=== PATIENT | male | born 1960 | race Caucasian/White ===

== ENCOUNTER → 2020-01-19 | Outpatient (CLI) | payer OTHER ==
[~2020-01-19] MED LIST: REGADENOSON 0.4 MG/5 ML DISP.SYRIN. IV ONE
--- NOTE | 2020-01-19 17:18 | CARD ---
MR#: [id number] Date of Study: 01/19/2020 Ordering Physician: LEXX FRANZ, Referring Physician: LEXX FRANZ, Tech: Vania Ramos APPROVED REPORT EXAM: Two-dimensional and M-mode echocardiogram with Doppler and color Doppler. Other Information Quality : Fair INDICATION Cardiomyopathy 2D DIMENSIONS Left Atrium(2D)3.8 (1.6-4.0cm)IVSd0.9 (0.7-1.1cm) Aortic Root(2D)2.9 (2.0-3.7cm)LVDd5.6 (3.9-5.9cm) LVOT Diameter2.0 (1.8-2.4cm)PWd1.0 (0.7-1.1cm) LVDs4.1 (2.5-4.0cm)FS (%) 26.0 % SV76.6 ml Aortic Valve AoV Peak Charles.139.3cm/sAoV VTI23.8cm AO Peak GR.7.8mmHgLVOT Peak Charles.106.6cm/s LVOT VTI 20.00cmAO Mean GR.5mmHg ALEX (VMAX)1.32hq5KZR (VTI)2.58cm2 Pulmonary Valve PV Peak Wauksmhq87.8cm/sPV Peak Grad.4mmHg Tricuspid Valve TR P. Pcmjbgge181el/sRAP REXMZXVS4xyYz TR Peak Gr.05ygFpAPFW95rxBw LEFT VENTRICLE The left ventricle is normal size. There is normal left ventricular wall thickness. The left ventricu lar systolic function is normal and the ejection fraction is within normal range. The Ejection Fracti on is 50-55%. Wall motion consistent with conduction abnormality. RIGHT VENTRICLE The right ventricle is normal size. There is normal right ventricular wall thickness. The right ventr icular systolic function is normal. ATRIA The left atrium is borderline dilated. The right atrium is borderline dilated. The interatrial septum is intact with no evidence for an atrial septal defect or patent foramen ovale as noted on 2-D or Do ppler imaging. AORTIC VALVE The aortic valve is calcified but opens well. Doppler and Color Flow revealed no significant aortic r egurgitation. There is no significant aortic valvular stenosis. Calculated aortic valve area is 2.52 cm2 with maximum pressure gradient of 8 mmHg and mean pressure gradient of 5 mmHg. MITRAL VALVE The mitral valve is normal in structure and function. There is no evidence of mitral valve prolapse. There is no mitral valve stenosis. Doppler and Color Flow revealed no mitral valve regurgitation note d. TRICUSPID VALVE The tricuspid valve is not well visualized. Doppler and Color Flow revealed trace tricuspid regurgita tion with an estimated PAP of 27 mmHg. There is no tricuspid valve stenosis. PULMONIC VALVE The pulmonic valve is not well visualized. Doppler and Color Flow revealed no pulmonic valvular regur gitation. GREAT VESSELS The aortic root is normal in size. The ascending aorta is normal in size. The IVC is normal in size a nd collapses >50% with inspiration. PERICARDIAL EFFUSION There is a trace pericardial effusion. Critical Notification Critical Value: No <Conclusion> The left ventricle is normal size. The left ventricular systolic function is normal and the ejection fraction is within normal range. The Ejection Fraction is 50-55%. Doppler and Color Flow revealed no significant aortic regurgitation. There is no significant aortic valvular stenosis. Doppler and Color Flow revealed no mitral valve regurgitation noted. Doppler and Color Flow revealed trace tricuspid regurgitation with an estimated PAP of 27 mmHg. Signed by : Turner Burroughs MD Electronically Approved : 01/19/2020 17:17:54
--- NOTE | 2020-01-19 17:31 | RAD ---
MR#: [id number] Date of Study: 01/19/2020 Ordering Physician: LEXX FRANZ, Referring Physician: RIC HUSTON Tech: ROB Suárez, ARRT (R) (N) APPROVED REPORT Test Type: Pharmacological Stress Nurse/Tech: Destiny Waters R.N. Test Indications: cardiomyapathy, afib Cardiac History: afib,obese,htn, See Electronic Medical Record Medications: See Electronic Medical Record Medical History: See Electronic Medical Record Resting ECG: Afib Resting Heart Rate: 72 bpm Resting Blood Pressure: 127/91mmHg Pretest Chest Pain: No chest pain Nurse/Tech Notes irregular rhythm, lungs CTA Consent: The procedure was explained to the patient in lay terms. Informed consent was witnessed. Aaron eout was entered into IForem. History and Stress Test performed by RT Christiano Jackson) (N) Pharm. Details Pharmacologic stress testing was performed using 0.4mg per 5ml of regadenoson given intravenously ove r 7-10 seconds. Stress Symptoms SOA POST EXERCISE Reason for Termination: Infusion complete Max HR: 111 bpm Max Blood Pressure: 129/85mmHg Blood Pressure response to exercise: Normal blood pressure response during stress. Heart Rate response to exercise: wnl Chest Pain: No. Arrhythmia: No. no change from baseline Afib ST Change: No. INTERPRETATION Stress EKG Conclusion: The resting EKG showed atrial fibrillation and nonspecific ST-T wave changes. The stress EKG showed no significant changes from baseline. No EKG evidence of stress-induced ischemia. Imaging Protocol IMAGE PROTOCOL: Rest Tc-99m/stress Tc-99m 1 day Rest: Stress: Viability: Radiopharm.Tc99m ZbmxwyyedQk34z Sestamibi Wcmj71sRd 32mCi Inj-Img Rhsd76lfn. 75min. Rest Admin Site:IV - Right HandAdministrator:RT Christiano Jackson)(N) Stress Admin Site: IV - Right HandAdministrator: RT Christiano Jackson)(N) STRESS DATA End Diast. Vol.87.0mlAv. Heart Rate74.0bpm End Syst. Vol.31.0mlCO Index BSA0.0L/min Myocardial Vahe308.0gEject. Staieuzu05.0% Stress Rates Pk. Fill Rate3.07EDV/secLVtime Pk. Fill 118.61msec Pk. Empty Rate3.26ESV/secLVtime Pk. Bxwrh327.39msec 1/3 Pk. Fill1.93EDV/sec Stress Scores Regional WT0.00Summed WT4.00 Regional WM0.00Summed WM3.00 LV Perfusion The stress scans showed no significant defects. The rest scans showed no significant defects. Nuclear imaging shows no reversible ischemia or infarct. Wall Motion Left ventricular systolic function is normal with no regional wall motion abnormalities and an ejecti on fraction of 64%. LV Perf. Quant 17 Seg. SSS0.00 17 Seg. SRS0.00 17 Seg. SDS0.00 Stress Defect Extent (% LAD)0.00Rest Defect Extent (% LAD)0.00Rev. Defect Extent (% LAD)0.00 Stress Defect Extent (% LCX) 0.00Rest Defect Extent (% LCX)0.00Rev. Defect Extent (% LCX)0.00 Stress Defect Extent (% RCA)0.00Rest Defect Extent (% RCA)0.00Rev. Defect Extent (% RCA)0.00 Stress Defect Extent (% LELO)0.00Rest Defect Extent (% LELO)0.00Rev. Defect Extent (% LELO)0.00 Conclusion 1. No EKG evidence of stress-induced ischemia. 2. Nuclear imaging shows no reversible ischemia or infarct. 3. Normal LV systolic function with an ejection fraction of 64%. 4. Low risk Lexiscan nuclear stress test. Signed by : Turner Burroughs MD Electronically Approved : 01/19/2020 17:30:51
== END | disposition home or self-care (01) ==
LOC: NM 09:49
PROVIDERS: ATTEND Internal Medicine Cardiovascular Disease
DX: I35.1 Nonrheumatic aortic (valve) insufficiency (principal); I42.9 Cardiomyopathy, unspecified; I48.91 Unspecified atrial fibrillation; I10 Essential (primary) hypertension
CPT/HCPCS: 78452; 93017; 93306; A9500; J2785

== ENCOUNTER → 2020-02-18 | Outpatient (CLI) | payer OTHER ==
[~2020-02-18] MED LIST changes: +APIX5TAB PO; +ATOR20TA58 PO; +FLEC50TA PO; +FURO20TA3 PO; +LISI10TA2 PO; +METO-239 PO; -REGADENOSON 0.4 MG/5 ML DISP.SYRIN. IV ONE
== END | disposition home or self-care (01) ==
LOC: LAB 13:09
PROVIDERS: ATTEND Internal Medicine Cardiovascular Disease
DX: Z01.812 Encounter for preprocedural laboratory examination (principal); I48.91 Unspecified atrial fibrillation; Z20.828 Contact with and (suspected) exposure to other viral communicable diseases
CPT/HCPCS: U0003-CS

== ENCOUNTER 2020-02-22 12:27 | Day surgery (SDC) | payer OTHER ==
[~2020-02-22 12:27] MED LIST changes: +HYDROmorphone 2 MG/ML VIAL IV PRN; +IV RINGERS,LACTATED 1000ML 1,000 ML IV SCH; +LIDOCAINE 1% PF 2 ML VIAL. ID PRN; +MORPHINE SULFATE 2 MG/ML VIAL. IV PRN; +ONDANSETRON PF 4 MG/2 ML VIAL. IV PRN; +PROCHLORPERAZINE 10 MG/2 ML VIAL. IV PRN; +fentaNYL PF VIAL 100 MCG/2 ML VIAL IV PRN
--- NOTE | 2020-02-22 13:10 | EKG ---
[facility] [address] [place] [address] Test Date: 2020-02-22 Test Time: 12:41:20 Pat Name: ALEX PRICE Department: Room: Gender: M Account Review Specialist: SHAKEEL Odom : 1960 Requested By: LEXX FRANZ Order Number: [id number] Reading MD: Measurements Intervals [place] Rate: 85 P: [place]: QRS: 7 QRSD: 98 T: 26 QT: 366 QTc: 436 Interpretive Statements IRREGULAR RHYTHM, NO P-WAVE FOUND OTHERWISE NORMAL ECG RI6.02 No previous ECG available for comparison
[2020-02-22] MEDS ORDERED: PROPOFOL 50 ML IV ONE (13:24)
[2020-02-22 13:32] LABS: BASO % 1 % (0-3); EOS # 0.1 x10^3/uL (0.0-0.7); EOS % 1 % (0-3); HEMATOCRIT 48.6 % (39.0-53.0); HEMOGLOBIN 16.4 g/dL (13.0-17.5); LYMPH # 1.3 x10^3/uL (1.0-4.8); LYMPH % 19 % (24-48); MEAN CORPUSCULAR HEMOGLOBIN 30 pg (25-35); MEAN CORPUSCULAR HGB CONC 34 g/dL (31-37); MEAN CORPUSCULAR VOLUME 88 fL (79-100); MONO # 0.5 x10^3/uL (0.0-1.1); MONO % 8 % (0-9); NEUT % 71 % (31-73); PLATELET COUNT 278 x10^3/uL (140-400); RED BLOOD COUNT 5.51 x10^6/uL (4.30-5.70); RED CELL DISTRIBUTION WIDTH 13.3 % (11.5-14.5)
[2020-02-22 13:41] LABS: CALCIUM 8.9 mg/dL (8.5-10.1)
[2020-02-22 13:46] LABS: ALBUMIN 3.7 g/dL (3.4-5.0); ALBUMIN/GLOBULIN RATIO 0.9 (1.0-1.7); TOTAL BILIRUBIN 0.7 mg/dL (0.2-1.0); TOTAL PROTEIN 7.6 g/dL (6.4-8.2)
[2020-02-22] MEDS ORDERED: LIDOCAINE 2% TOPICAL JELLY 5GM TUBE. TP ONE (14:20)
[2020-02-22] MEDS ORDERED: LIDOCAINE 2% VISCOUS 15 ML SOLUTION. ONE (14:20)
[2020-02-22] MEDS ORDERED: BENZOCAINE ONE 20% MUCOSAL SPRAY. (14:20)
--- NOTE | 2020-02-22 14:50 | EKG ---
[facility] [address] [place] [address] Test Date: 2020-02-22 Test Time: 14:48:40 Pat Name: ALEX PRICE Department: Room: Gender: M Senior Gis Analyst: CLAUDETTE : 1960 Requested By: MERCED ALVARADO Order Number: [id number] Reading MD: Measurements Intervals [place] Rate: 71 P: 43 CO: 190 QRS: 30 QRSD: 88 T: 30 QT: 380 QTc: 413 Interpretive Statements SINUS RHYTHM NORMAL ECG RI6.02 Compared to ECG 02/22/2020 12:41:20 No significant changes
[2020-02-22 15:15] VITALS: BP 98/63
--- NOTE | 2020-02-22 17:23 | CARD ---
MR#: [id number] Date of Study: 02/22/2020 Ordering Physician: LEXX FRANZ, Referring Physician: LEXX FRANZ, Tech: Thao Paredes RDCS APPROVED REPORT EXAM: Transesophageal echocardiogram with color flow Doppler. INDICATION Atrial Fibrillation PROCEDURE After obtaining informed consent, patient underwent transesophageal echo in the PACU. Type of Sedation : General Anesthesia Sedation was administered by Truong Rousseau CRNA. Sedation was achieved with Propofol 150 mg intravenously. Transesophageal probe was inserted and advanced into esophagus by Otis Tom MD. The LUCINA was performed without complications. Synchronized Cardioversion attempted: Successful Throughout the procedure, the blood pressure, pulse oximetry, cardiac rhythm, and rate were monitored . The patient tolerated the procedure without adverse effects. Recovery from general anesthesia was une ventful and vital signs were stable. LEFT VENTRICLE The left ventricular systolic function is normal. The Ejection Fraction is 55-60%. There is normal LV segmental wall motion. RIGHT VENTRICLE The right ventricle is normal size. The right ventricular systolic function is normal. ATRIA The left atrium size is normal. The right atrium size is normal. The interatrial septum is intact wit h no evidence for an atrial septal defect or patent foramen ovale as noted on 2-D or Doppler imaging. There is no thrombus noted in the left atrial appendage. AORTIC VALVE The aortic valve is normal in structure and function. Doppler and Color Flow revealed no significant aortic regurgitation. There is no significant aortic valvular stenosis. MITRAL VALVE The mitral valve is normal in structure and function. There is no evidence of mitral valve prolapse. There is no mitral valve stenosis. Doppler and Color-flow revealed trace to mild mitral regurgitation . TRICUSPID VALVE The tricuspid valve is normal in structure and function. Doppler and Color Flow revealed trace tricus pid regurgitation. There is no tricuspid valve stenosis. PULMONIC VALVE The pulmonary valve is normal in structure and function. Doppler and Color Flow revealed no pulmonic valvular regurgitation. PERICARDIAL EFFUSION There is no evidence of significant pericardial effusion. Critical Notification Critical Value: No <Conclusion> The left ventricular systolic function is normal. The Ejection Fraction is 55-60%. There is normal LV segmental wall motion. Trace to mild mitral regurgitation. Trace tricuspid regurgitation. There is no evidence of significant pericardial effusion. No intracardiac vegetations or thrombi. Patient underwent successful external cardioversion, reported separately. Signed by : Otis Tom, Electronically Approved : 02/22/2020 17:23:14
--- NOTE | 2020-02-22 17:25 | PDOC4 ---
Procedure Note Procedure: LUCINA guided external cardioversion Indications: Atrial fibrillation Complications: None Procedural Details: An informed consent was obtained from patient. Anesthesiology team administered intravenous propofol for deep sedation. Transesophageal echocardiogram probe was inserted and standard tomographic images were obtained to rule out intracardiac thrombus. Patient was then given 200 J followed by 300 J synchronized biphasic DC current with final conversion of patient rhythm from atrial fibrillation to sinus rhythm. He was hemodynamically stable without any neurological deficits at the end of procedure. He tolerated the procedure well. There were no immediate complications. Conclusions: Successful LUCINA guided external cardioversion of atrial fibrillation to sinus rhythm. MERCED ALVARADO MD Feb 22, 2020 17:25
== END 2020-02-22 15:41 | disposition home or self-care (01) ==
LOC: SURG 12:27
PROVIDERS: ATTEND Internal Medicine Cardiovascular Disease
DX: I48.91 Unspecified atrial fibrillation (principal); I10 Essential (primary) hypertension; I34.0 Nonrheumatic mitral (valve) insufficiency; Z79.899 Other long term (current) drug therapy; Z72.89 Other problems related to lifestyle
CPT/HCPCS: 36415; 80053; 85025; 85610; 85730; 92960; 93005; 93312; 93325; J2704

== ENCOUNTER → 2020-06-30 | Outpatient (CLI) | payer OTHER ==
[~2020-06-30] MED LIST changes: -HYDROmorphone 2 MG/ML VIAL IV PRN; -IV RINGERS,LACTATED 1000ML 1,000 ML IV SCH; -LIDOCAINE 1% PF 2 ML VIAL. ID PRN; -MORPHINE SULFATE 2 MG/ML VIAL. IV PRN; -ONDANSETRON PF 4 MG/2 ML VIAL. IV PRN; -PROCHLORPERAZINE 10 MG/2 ML VIAL. IV PRN; -fentaNYL PF VIAL 100 MCG/2 ML VIAL IV PRN
--- NOTE | 2020-06-30 16:28 | KCIC ---
Examination: MRI right shoulder without contrast HISTORY: History of right shoulder pain COMPARISON: None available Technique: Multiplanar, multisequence MR imaging of the right shoulder performed without contrast FINDINGS: The long head of the biceps tendon within the bicipital groove. The attachment of the long head the b iceps tendon to the superior labral anchor grossly appears intact. The attachment of the subscapularis tendon, supraspinatus ligament grossly appears intact. There is m oderate increased T2 signal identified in the supraspinatus, infraspinatus tendon likely tendinosis. There is increased signal identified in the superior labrum likely degenerative tear. Moderate joint space loss identified in the glenohumeral joint, acromioclavicular joint likely degenerative changes. The acromion is type II. The muscle bulk grossly appears unremarkable. There is obscuration of fat in the rotator interval. IMPRESSION: 1. Increased T2 signal identified in the superior labrum likely a SLAP tear. 2. Moderate tendinosis rotator cuff. Moderate degenerative changes glenohumeral joint, acromioclavic ular joint. 3. Obscuration of fat in the rotator interval. Correlate for adhesive capsulitis. Electronically signed by: Presley Amaya MD (06/30/2020 4:26 PM) [id number]
== END ==
LOC: KCIC MRI 14:27
PROVIDERS: ATTEND Family Medicine
DX: S49.91XD Unspecified injury of right shoulder and upper arm, subsequent encounter (principal); M19.011 Primary osteoarthritis, right shoulder; M75.101 Unspecified rotator cuff tear or rupture of right shoulder, not specified as traumatic; X58.XXXD Exposure to other specified factors, subsequent encounter
CPT/HCPCS: 73221

== ENCOUNTER → 2020-09-13 | Outpatient (CLI) | payer OTHER ==
[~2020-09-13] MED LIST changes: +LISI10TA16 PO; -LISI10TA2 PO
== END ==
LOC: SURGPAT 08:38
PROVIDERS: ATTEND Orthopaedic Surgery
DX: Z01.812 Encounter for preprocedural laboratory examination (principal); Z20.822 Contact with and (suspected) exposure to COVID-19; S43.431D Superior glenoid labrum lesion of right shoulder, subsequent encounter; M75.01 Adhesive capsulitis of right shoulder; M19.011 Primary osteoarthritis, right shoulder; X58.XXXD Exposure to other specified factors, subsequent encounter
CPT/HCPCS: U0003; U0005

== ENCOUNTER 2020-09-23 07:41 | Day surgery (SDC) | payer OTHER ==
[~2020-09-23] VITALS: Ht 182.9 cm; Wt 116.1 kg
[~2020-09-23 07:41] MED LIST changes: +HYDROmorphone 2 MG/ML VIAL IVP PRN; +IV RINGERS,LACTATED 1000ML 1,000 ML IV SCH; +MORPHINE SULFATE 2 MG/ML VIAL. IVP PRN; +PROCHLORPERAZINE 10 MG/2 ML VIAL. IVP PRN; +fentaNYL PF VIAL 100 MCG/2 ML VIAL IVP PRN
[2020-09-23] MEDS ORDERED: fentaNYL PF VIAL 100 MCG/2 ML VIAL ONE (09:18)
[2020-09-23] MEDS ORDERED: PROPOFOL 10 MG/ML (20ML) VIAL. IV ONE (09:18)
[2020-09-23] MEDS ORDERED: LIDOCAINE 2% PF 5 ML VIAL. ONE (09:18)
[2020-09-23] MEDS ORDERED: SUCCINYLCHOLINE 200 MG/10 ML VIAL. ONE (09:18)
[2020-09-23] MEDS ORDERED: ROCURONIUM 50 MG/5 ML VIAL. ONE (09:18)
[2020-09-23] MEDS ORDERED: BUPIVACAINE-EPI 0.25% 30 ML VIAL KIT. ONE ×2 (09:39)
[2020-09-23] MEDS ORDERED: EPINEPHrine VIAL 30 MG/30 ML VIAL ONE (09:39)
[2020-09-23] MEDS ORDERED: DEXAMETHASONE SOD PHOS 4 MG/ML VIAL ONE (10:44)
[2020-09-23] MEDS ORDERED: ONDANSETRON PF 4 MG/2 ML VIAL. ONE (10:44)
[2020-09-23] MEDS ORDERED: NEOSTIGMINE METHYLSULFATE 5 MG/5 ML SYRINGE. ONE (11:39)
[2020-09-23] MEDS ORDERED: GLYCOPYRROLATE 1 MG/5 ML VIAL. ONE (11:39)
[2020-09-23] MEDS ORDERED: HYDROcodone/APAP 5/325MG 1 TAB TABLET PO ONE (12:15)
[2020-09-23] MEDS ORDERED: MORPHINE SULFATE 2 MG/ML VIAL. ONE (12:18)
[2020-09-23] MEDS: MORPHINE SULFATE 2 MG/ML VIAL. IVP PRN ×2 (12:19→12:29)
--- NOTE | 2020-09-23 12:30 | PDOC4 ---
Operative Note Operative Note Date of Procedure: September 23, 2020 Pre-Op Diagnosis: Superior glenoid labrum lesion of right shoulder, initial encounter S43.431A Impingement syndrome of right shoulder M75.41 Post-Op Diagnosis: Superior glenoid labrum lesion of right shoulder, initial encounter S43.431A Impingement syndrome of right shoulder M75.41 Bicipital tendinitis, right shoulder M75.21 Procedure: Arthroscopy, right shoulder, surgical; decompression of subacromial space with partial acromioplasty CPT 62259 Arthroscopy, right shoulder, surgical; debridement, limited CPT 21911 Right shoulder, open tenodesis of long tendon of biceps CPT 66023 Surgeon: Ovidio Shaikh MD Tax Intern: SHERIN Tanner Anesthesia: General EBL: 50 mL Specimens Obtained: none Complications: none Drains: none Findings: High-grade SLAP tear of the superior labrum with extension into the biceps anchor. I did shaving debridement of the superior labrum tear, which required debridement of part of the biceps tendon. I then completed the biceps tenotomy in preparation for a bicep tenodesis to prevent recurrent symptomatic pain. The subscapularis tendon was intact. The rotator cuff attachment is intact. There is minor bursal sided scuffing of the cuff but no repairable tear or any high-grade tear. There was significant impingement with a prominent anterior acromion arthroscopic acromioplasty was performed. The acromioclavicular joint does appear somewhat arthritic, however he had no tenderness or symptoms at this area preoperatively. 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 We have tried nonoperative treatment with a cortisone injection and home exercise program. He still has significant pain. MRI shows a SLAP tear. There is rotator cuff tendinitis, and he has impingement syndrome. I recommended arthroscopy, subacromial decompression, SLAP lesion treatment by debridement, and probable bicep tenodesis, and evaluation of the rotator cuff for possible repair if the tendinitis is more s ignificant than what the MRI shows. We talked about the potential risk of infection stiffness bleeding recurrent tear continued pain or other potential surgical or anesthetic complications. All of his questions about surgery were answered and he desired to proceed. Written consent was obtained. Procedure in Detail: The patient was identified in the preoperative holding area. The correct right shoulder was marked by me. The patient was taken to the operating room where general anesthesia was used. The patient was positioned in the beach chair position with the bony prominences well-padded and the eyes protected. Preoperative antibiotics were given intravenously. A timeout procedure was performed. Under sterile technique 20 mL of bupivacaine with epinephrine was injected into the subacromial space and glenohumeral joint. The limb was then thoroughly prepared with surgical ChloraPrep solution circumferentially. Sterile waterproof arthroscopy shoulder drapes were applied, along with an impervious stockinette over the arm, and a Spider arm hernandez. Posterior, posterolateral, lateral, and anterior arthroscopy portals were used. The glenohumeral joint showed normal articular surfaces of the humeral head and glenoid. There was a SLAP tear with a fragmented superior labrum, and extension of the tear into the biceps anchor. Arthroscopic shaving debridement was performed which included debridement into the biceps tendon. I then completed the biceps tenotomy with the ConMed Edge thermal energy device in preparation for tenodesis. The subscapularis tendon, the glenohumeral joint, and the rotator cuff attachment all appear normal. The subacromial space was entered. The anterior acromion was prominent and the subacromial space was narrowed. The ConMed Edge thermal energy bipolar device was used for hemostasis and to resect the undersurface periosteum exposing the prominent anterior acromion. A 6.0 mm oval heath was used for the acromioplasty. A three-stage acromioplasty was performed, with the heath first laterally, removing anterior acromion, using the distal clavicle as a reference. The heath was then placed in the posterior portal, and a cutting block technique was used for smoothing of the lateral edge of the acromion tapering the anterior acromion into a Bigliani type I configuration. Final smoothing of the acromion was performed with the heath again in the lateral portal, and direct arthroscopic visualization. The impingement of the subacromial space was now nicely decompressed. The distal clavicle was visualized. It does not seem to be causing impingement but it does appear somewhat arthritic. He was not symptomatic care preoperatively so I did not do a distal clavicle excision. The cuff was examined. There is mild superficial scuffing and superficial tearing near the musculotendinous junction, with normal-appearing tendon further distally at the footprint. I do not feel that any rotator cuff repair was indicated. The arthroscopic instruments were removed. Outer gloves were changed. The skin was prepared a second time with ChloraPrep solution. I extended the anterior portal into deltopectoral incision for the biceps tenodesis. Care was made not to extend more than 4 cm distally so as to avoid axillary nerve injury. Self- retaining retractors were placed including Weitlaner and then Kobel retractors. The biceps tendon was identified at the intertubercular sulcus, and retracted with a hemostat. This was whipstitched with a #2 fiber loop FiberWire suture. The end of the tendon was trimmed. A guidepin was placed deep in the intertubercular sulcus, followed by a 7.5 mm cannulated reamer. The socket was made in the humerus for the tenodesis. Copious saline irrigation was used to remove all bone fragments. An Arthrex Bio-Tenodesis screw was then deployed, and the tip of the tendon was secured to the tip of the screw using the FiberWire sutures. The tendon was docked deep into the tunnel, and then the screw was inserted securing the tendon nicely in the tunnel. The sutures were tied inside and outside of the screw for additional security of the tendon. A secure tenodesis was obtained. Copious saline irrigation was used. I closed the fascia of the deltoid with #0 Vicryl suture in a jhufwq-bd-bblcd fashion. My physician assistant Song then completed the subcutaneous closure with #2-0 Vicryl. He closed the portals with #3-0 Prolene. He repaired the skin incision with #3-0 Stratafix, Mastisol and Steri- Strips. He injected an additional 30 mL of bupivacaine with epinephrine. Xeroform was used over the portals. A bulky sterile dressing was applied. A DonJoy UltraSling was applied. There were no apparent complications. OVIDIO SHAIKH MD Sep 23, 2020 12:30
[2020-09-23] MEDS ORDERED: HYDROmorphone 2 MG/ML VIAL ONE (12:49)
[2020-09-23 13:48] VITALS: BP 122/94
== END 2020-09-23 14:22 | disposition home or self-care (01) ==
LOC: SURG 07:41
PROVIDERS: ATTEND Orthopaedic Surgery
DX: S43.431A Superior glenoid labrum lesion of right shoulder, initial encounter (principal); M75.41 Impingement syndrome of right shoulder; M75.21 Bicipital tendinitis, right shoulder; E78.00 Pure hypercholesterolemia, unspecified; I10 Essential (primary) hypertension; I48.91 Unspecified atrial fibrillation; M19.90 Unspecified osteoarthritis, unspecified site; F32.9 Major depressive disorder, single episode, unspecified; Z87.891 Personal history of nicotine dependence; Z72.89 Other problems related to lifestyle; Z98.890 Other specified postprocedural states; X58.XXXA Exposure to other specified factors, initial encounter; Y93.89 Activity, other specified; Y92.89 Other specified places as the place of occurrence of the external cause; Y99.8 Other external cause status
CPT/HCPCS: 23430; 29822; 29826; A4565; A4928; A4930; C1713; J0171; J0330; J0690; J1100; J1170; J2270; J2405; J2704; J2710; J3010; J3490; A4452

== ENCOUNTER 2021-02-16 10:49 | Day surgery (SDC) | payer OTHER ==
[~2021-02-16] VITALS: Ht 182.9 cm; Wt 119.5 kg
[~2021-02-16 10:49] MED LIST changes: +MORPHINE SULFATE 2 MG/ML INJ. IVP PRN; -MORPHINE SULFATE 2 MG/ML VIAL. IVP PRN
[2021-02-16 11:42] VITALS: BP 140/97
[2021-02-16 12:10] LABS: CALCIUM 8.5 mg/dL (8.5-10.1); GFR 75.7
--- NOTE | 2021-02-16 12:11 | EKG ---
[facility] [address] [place] [address] Test Date: 2021-02-16 Test Time: 12:05:56 Pat Name: ALEX PRICE Department: Room: Gender: M Heel Layer: : 1960 Requested By: LEXX FRANZ Order Number: [id number] Reading MD: Measurements Intervals [place] Rate: 55 P: [place]: QRS: 36 QRSD: 84 T: 28 QT: 434 QTc: 417 Interpretive Statements IRREGULAR RHYTHM, NO P-WAVE FOUND OTHERWISE NORMAL ECG RI6.02 Compared to ECG 02/22/2020 14:48:40 Sinus rhythm no longer present
[2021-02-16] MEDS ORDERED: LIDOCAINE 2% VISCOUS 15 ML SOLUTION. ONE (12:13)
[2021-02-16] MEDS ORDERED: LIDOCAINE 2% TOPICAL JELLY 30GM TUBE. TP ONE ×2 (12:13→13:15)
[2021-02-16] MEDS ORDERED: BENZOCAINE ONE 20% MUCOSAL SPRAY. (12:13)
[2021-02-16] MEDS ORDERED: LIDOCAINE 2% PF 5 ML VIAL. ONE (12:14)
[2021-02-16] MEDS ORDERED: PROPOFOL 10 MG/ML (20ML) VIAL. IV ONE (12:14)
[2021-02-16] MEDS ORDERED: BENZOCAINE ONE 20% MUCOSAL SPRAY. MM (13:15)
[2021-02-16 13:19] VITALS: BP 90/63
--- NOTE | 2021-02-16 13:35 | EKG ---
[facility] [address] [place] [address] Test Date: 2021-02-16 Test Time: 13:30:27 Pat Name: ALEX PRICE Department: Room: Gender: M Lpn Rn Hospice: CLAUDETTE : 1960 Requested By: LEXX FRANZ Order Number: [id number] Reading MD: Measurements Intervals [place] Rate: 54 P: 42 PA: 192 QRS: 31 QRSD: 86 T: 22 QT: 454 QTc: 432 Interpretive Statements SINUS RHYTHM NORMAL ECG RI6.02 Compared to ECG 02/16/2021 12:05:56 No significant changes
--- NOTE | 2021-02-16 16:37 | CARD ---
MR#: [id number] Date of Study: 02/16/2021 Ordering Physician: LEXX NOLASCO, Referring Physician: LEXX NOLASCO, Tech: Vania Ramos [facility] APPROVED REPORT EXAM: Two-dimensional and M-mode echocardiogram with Doppler and color Doppler. INDICATION Atrial Fibrillation RISK FACTORS Hypertension Hyperlipidemia Reason For Test : Rule out Intracardiac Thrombus. PROCEDURE After obtaining informed consent, patient underwent transesophageal echo in the PACU. Type of Sedation : General Anesthesia Sedation was administered by Kaitlin Chino. Sedation was achieved with Propofol 180mg intravenously. Sedation was achieved with Lidocaine 100mg intravenously. Transesophageal probe was inserted and advanced into esophagus by Alec Nolasco MD. The LUCINA was performed without complications. Synchronized Cardioversion attempted: Successful Synchronized Cardioversion acheived with 200 Joules after 1 attempt(s). Rhythm following Synchronized Cardioversion: Sinus Bradycardia Throughout the procedure, the blood pressure, pulse oximetry, cardiac rhythm, and rate were monitored . The patient tolerated the procedure without adverse effects. Recovery from general anesthesia was une ventful and vital signs were stable. LEFT VENTRICLE The left ventricle is normal size. There is borderline to mild concentric left ventricular hypertroph y. The systolic function is mildly impaired. The Ejection Fraction is 45%. There is global hypokinesi s of the left ventricle. No left ventricle thrombus noted on this study. RIGHT VENTRICLE The right ventricle is borderline dilated. There is normal right ventricular wall thickness. The righ t ventricular systolic function is normal. ATRIA The left atrium is mildly dilated. The right atrium is borderline dilated. The interatrial septum is intact with no evidence for an atrial septal defect or patent foramen ovale as noted on 2-D or Dopple r imaging. There is no thrombus noted in the left atrial appendage. AORTIC VALVE The aortic valve is normal in structure and function. Doppler and Color Flow revealed no significant aortic regurgitation. There is no significant aortic valvular stenosis. There is no aortic valvular v egetation. MITRAL VALVE The mitral valve is normal in structure and function. There is no evidence of mitral valve prolapse. There is no mitral valve stenosis. Doppler and Color-flow revealed trace mitral regurgitation. TRICUSPID VALVE The tricuspid valve is normal in structure and function. Doppler and Color Flow revealed trace tricus pid regurgitation. There is no tricuspid valve prolapse or vegetation. There is no tricuspid valve st enosis. PULMONIC VALVE The pulmonic valve is not well visualized. GREAT VESSELS The aortic root is normal in size. The pulmonary artery is normal. The IVC is normal in size and marcelle apses >50% with inspiration. Critical Notification Critical Value: No <Conclusion> The systolic function is mildly impaired. The Ejection Fraction is 45%. There is global hypokinesis of the left ventricle. There is no thrombus noted in the left atrial appendage. Successful CVN to SR. Signed by : Lexx Nolasco, Electronically Approved : 02/16/2021 16:37:19
== END 2021-02-16 13:43 | disposition home or self-care (01) ==
LOC: SURG 10:49
PROVIDERS: ATTEND Internal Medicine Cardiovascular Disease
DX: I48.91 Unspecified atrial fibrillation (principal); I34.0 Nonrheumatic mitral (valve) insufficiency; I36.1 Nonrheumatic tricuspid (valve) insufficiency; I10 Essential (primary) hypertension; E78.00 Pure hypercholesterolemia, unspecified; M19.90 Unspecified osteoarthritis, unspecified site; F32.9 Major depressive disorder, single episode, unspecified; Z79.899 Other long term (current) drug therapy; Z87.891 Personal history of nicotine dependence; Z98.890 Other specified postprocedural states; Z72.89 Other problems related to lifestyle
CPT/HCPCS: 36415; 80048; 83735; 92960; 93005; 93312; 93325; J2704